=== PATIENT | female | born 1995 | race Caucasian/White ===

== ENCOUNTER 2016-10-26 14:06 | Emergency (ER) | payer OTHER ==
[2016-10-26 14:16] VITALS: BP 117/67
--- NOTE | 2016-10-26 14:23 | ED ---
Lower Extremity - HPI Summary HPI Summary: 21 YEAR OLD FEMALE PRESENTS WITH COMPLAINS OF LEFT ANKLE/FOOT PAIN AND ANTERIOR ESPINO ABRASION. - History of Current Complaint Chief Complaint: UCLowerExtremity Stated Complaint: FOOT INJURY Time Seen by Provider: 10/26/16 14:22 Hx Obtained From: Patient Hx Last Menstrual Period: 3 weeks ago Mechanism Of Injury: Fall From A Standing Position Onset of Pain: Hours Onset/Duration: Hours Severity Initially: Moderate Severity Currently: Moderate Pain Scale Used: 0-10 Numeric - 7 Timing: Constant Character Of Pain: Sharp Associated Signs And Symptoms: Positive: Redness Aggravating Factor(s): Standing - Allergies/Home Medications Allergies/Adverse Reactions: Allergies Allergy/AdvReac Type Severity Reaction Status Date / Time No Known Allergies Allergy Verified 10/26/16 14:15 Home Medications: Home Medications Eczema Cream 1 applic TOPICAL DAILY 10/26/16 [History Confirmed 10/26/16] Norgestimate-Ethinyl Estradiol [[place] 0.25-35 mg-Mcg] 1 tab PO DAILY 10/26 [History Confirmed 10/26/16] Sertraline* [Zoloft*] 75 mg PO BEDTIME 10/26/16 [History Confirmed 10/26/16] PMH/Surg Hx/FS Hx/Imm Hx Previously Healthy: Yes Endocrine/Hematology History: Denies: Hx Diabetes, Hx Thyroid Disease Cardiovascular History: Denies: Hx Hypertension Respiratory History: Denies: Hx Asthma, Hx Chronic Obstructive Pulmonary Disease (COPD) GI History: Denies: Hx Ulcer - Surgical History Surgery Procedure, Year, and Place: [place] Teeth extraction Infectious Disease History: No Infectious Disease History: Denies: Hx Hepatitis, Hx Human Immunodeficiency Virus (HIV), History Other Infectious Disease, Traveled Outside the [place] in Last 30 Days - Social History Alcohol Use: None Substance Use Type: Reports: None Smoking Status (MU): Never Smoked Tobacco Review of Systems Constitutional: Negative Eyes: Negative ENT: Negative Cardiovascular: Negative Respiratory: Negative Gastrointestinal: Negative Positive: Other - LAFT FOOT ANKLE/FOOT SPRAIN Positive: Other - LEFT ESPINO ABRASION All Other Systems Reviewed And Are Negative: Yes Physical Exam Triage Information Reviewed: Yes Vital Signs On Initial Exam: Initial Vitals Temp Pulse Resp BP Pulse Ox 37.1 C 90 16 117/67 100 10/26/16 14:12 10/26/16 14:12 10/26/16 14:12 10/26/16 14:12 10/26/16 14:12 Vital Signs Reviewed: Yes Appearance: Positive: Well-Appearing Skin: Positive: Warm, Other - LEFT ANTERIOR ESPINO ABRASION Head/Face: Positive: Normal Head/Face Inspection Eyes: Positive: Normal ENT: Positive: Normal ENT inspection Neck: Positive: Supple Respiratory/Lung Sounds: Positive: Clear to Auscultation Cardiovascular: Positive: Normal Abdomen Description: Positive: Nontender Musculoskeletal: Positive: Other - LEFT ANKLE/SPRAIN PAIN/SWELLING Neurological: Positive: Normal Diagnostics - Vital Signs Vital Signs Temp Pulse Resp BP Pulse Ox 10/26/16 14:12 37.1 C 90 16 117/67 100 - Laboratory Lab Statement: Any lab studies that have been ordered have been reviewed, and results considered in the medical decision making process. Lower Extremity Course/Dx - Diagnoses Provider Diagnoses: Left ankle pain, Abrasion Discharge - Discharge Plan Condition: Stable Disposition: HOME Prescriptions: Meloxicam(NF) [Mobic(NF)] 7.5 mg PO BID #30 tab Patient Education Materials: Ankle Sprain (ED), Foot Sprain (ED) Referrals: No Primary Care Phys,NOPCP [Primary Care Provider] - Tanya Edmond MD [Medical Doctor] -
--- NOTE | 2016-10-26 14:46 | RAD ---
Indication: Fall today. Laceration down distal tibia. Pain in foot and ankle. Comparison: No relevant prior exams available on the [facility] [place] PACS for comparison. Technique: AP, mortise, and lateral views LEFT ankle. AP, lateral, and oblique views LEFT foot. Report: Medial and lateral distal lower leg soft tissue swelling and mild swelling over the lateral malleolus. No conspicuous foreign body or subcutaneous emphysema. Normal articular alignment at the ankle and foot. Negative for fracture. IMPRESSION: Soft tissue swelling without additional radiographic abnormality at the ankle or foot.
--- NOTE | 2016-10-26 14:46 | RAD ---
Indication: Fall today. Laceration down distal tibia. Pain in foot and ankle. Comparison: No relevant prior exams available on the [facility] [place] [facility] PACS for comparison. Technique: AP, mortise, and lateral views LEFT ankle. AP, lateral, and oblique views LEFT foot. Report: Medial and lateral distal lower leg soft tissue swelling and mild swelling over the lateral malleolus. No conspicuous foreign body or subcutaneous emphysema. Normal articular alignment at the ankle and foot. Negative for fracture. IMPRESSION: Soft tissue swelling without additional radiographic abnormality at the ankle or foot.
== END 2016-10-26 15:05 | disposition home or self-care (01) ==
LOC: UCEAST 14:06
DX: S80.812A Abrasion, left lower leg, initial encounter (principal); W18.30XA Fall on same level, unspecified, initial encounter; Y93.9 Activity, unspecified; Y92.9 Unspecified place or not applicable; M25.572 Pain in left ankle and joints of left foot
CPT/HCPCS: 99213; G0463